=== PATIENT | female | born 1955 | race Caucasian/White ===

== ENCOUNTER 2017-04-05 21:18 | Emergency (ER) | payer SELFPAY ==
[~2017-04-05 21:18] MED LIST: PRED5PAK PO; Z.0.NO CURRENT MEDS
[2017-04-05 21:20] VITALS: BP 159/77; PULSE 80; RESP 16; TEMP 97.9; O2SAT 100
== END 2017-04-05 21:30 | disposition left against medical advice (07) ==
LOC: NED 21:18
DX: Z53.21 Procedure and treatment not carried out due to patient leaving prior to being seen by health care provider (principal)
CPT/HCPCS: 99281